=== PATIENT | female | born 1970 | race American Indian/Alaskan Native ===

== ENCOUNTER 2017-03-11 13:06 | Emergency (ER) | payer OTHER ==
[2017-03-11 13:12] VITALS: BP 153/93; PULSE 80; RESP 20; TEMP 98.3; O2SAT 99
--- NOTE | 2017-03-11 13:57 | RAD ---
PROCEDURE: Right Wrist Radiographs. HISTORY: "locked up" COMPARISON: None. FINDINGS: BONES: Displaced fracture mid scaphoid. Angulation of distal fragment. No other fracture identified. JOINTS: Normal carpal alignment maintained. Scapholunate interval is unremarkable. SOFT TISSUES: Normal. OTHER FINDINGS: None. IMPRESSION: Displaced fracture mid right scaphoid.
--- NOTE | 2017-03-11 14:00 | ED PDOC ---
Upper Extremity Pain/Injury Time Seen by Provider: 03/11/17 13:25 Chief Complaint (Nursing): Finger,Hand,&Wrist Chief Complaint (Provider): Finger,Hand,&Wrist History Per: Patient History/Exam Limitations: no limitations Onset/Duration Of Symptoms: Hrs Quality: Sharp Severity: Mild Additional Complaint(s): 46 y/o female patient presenting to the ED with pain to the right hand and wrist. 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 She states that she did not hit it on anything and it and there is no trauma involved. Pt also states that she did not take anything for the pain. Past Medical History Reviewed: Historical Data, Nursing Documentation, Vital Signs Vital Signs: Last Vital Signs Temp 98.3 F 03/11/17 13:09 Pulse 80 03/11/17 13:09 Resp 20 03/11/17 13:09 BP 153/93 H 03/11/17 13:09 Pulse Ox 99 03/11/17 13:09 - Medical History PMH: HTN - Surgical History Surgical History: No Surg Hx - Family History Family History: States: No Known Family Hx - Home Medications Home Medications: Ambulatory Orders Medication Instructions Recorded Ibuprofen [Motrin Tab] 800 mg PO Q6H PRN #20 tab 03/11/17 - Allergies Allergies/Adverse Reactions: Allergies Allergy/AdvReac Type Severity Reaction Status Date / Time sea salt Allergy RASH Uncoded 03/11/17 13:09 Review of Systems ROS Statement: Except As Marked, All Systems Reviewed And Found Negative Musculoskeletal: Positive for: Hand Pain ((+)sharp pain in right hand and wrist , Atraumatic) Physical Exam - Reviewed Nursing Documentation Reviewed: Yes Vital Signs Reviewed: Yes - Physical Exam Appears: Positive for: Well, Uncomfortable Head Exam: Positive for: ATRAUMATIC, NORMAL INSPECTION, NORMOCEPHALIC Skin: Positive for: Normal Color, Warm Eye Exam: Positive for: Normal appearance ENT: Positive for: Normal ENT Inspection Neck: Positive for: Normal Respiratory: Negative for: Decreased Breath Sounds, Respiratory Distress Pulses-Radial (L): 2+ Pulses-Radial (R): 2+ Extremity: Positive for: Tenderness ((+)Distal and Radius Tenderness), Swelling , Other (Right hand (+)Decreased ROM, Normal sensation,). Negative for: Normal ROM Neurologic/Psych: Positive for: Alert, Oriented. Negative for: Motor/Sensory Deficits - ECG O2 Sat by Pulse Oximetry: 99 (RA) Pulse Ox Interpretation: Normal Medical Decision Making Medical Decision Making: Time: 1325 Initial impression: Hand and Wrist pain Initial plan: --Ibuprofen 600mg Discussed with Dr. Shell. Would like patient to follow-up on Wednesday, possible surgery needed due to displaced fx. Scribe Attestation: Documented by Olive Covington acting as a scribe for BOONE Taylor MD Scribe Attestation: All medical record entries made by the Scribe were at my direction and personally dictated by me. I have reviewed the chart and agree that the record accurately reflects my personal performance of the history, physical exam, medical decision making, and the department course for this patient. I have also personally directed, reviewed, and agree with the discharge instructions and disposition. Disposition - Clinical Impression Clinical Impression: Scaphoid fracture - Patient ED Disposition Is Patient to be Admitted: No Counseled Patient/Family Regarding: Diagnosis, Need For Followup, Rx Given - Disposition Referrals: Sonja Shell MD [Staff Provider] - Disposition: Routine/Home Disposition Time: 13:59 Condition: GOOD Additional Instructions: Please follow-up with hand specialist. Prescriptions: Ibuprofen [Motrin Tab] 800 mg PO Q6H PRN #20 tab PRN Reason: Pain Instructions: Scaphoid Fracture (ED) Forms: [email or web address] [facility] ([place]ovenian)
== END 2017-03-11 14:54 | disposition home or self-care (01) ==
LOC: H.ER 13:06
DX: S62.001A Unspecified fracture of navicular [scaphoid] bone of right wrist, initial encounter for closed fracture (principal); X50.9XXA Other and unspecified overexertion or strenuous movements or postures, initial encounter; Y99.0 Civilian activity done for income or pay